=== PATIENT | male | born 1985 | race Caucasian/White ===

== ENCOUNTER 2021-02-02 17:02 | Emergency (ER) | payer OTHER, SELFPAY ==
--- NOTE | ~2021-02-02 | XR_ITS ---
XR ankle RT min 3V 02/02/2021 17:31 INDICATION: Right ankle pain PROCEDURE: 4 views right ankle COMPARISON: No prior studies for comparison. FINDINGS: Fracture, dislocation or subluxation is not identified. The soft tissues appear within norm al limits. No foreign bodies are identified. IMPRESSION: 1: NO ACUTE BONE OR JOINT ABNORMALITY IDENTIFIED. Reviewed, dictated and finalized at location A.
[2021-02-02 17:10] VITALS: BP 155/80; PULSE 74; RESP 14; TEMP 36.6; O2SAT 100
--- NOTE | 2021-02-02 18:03 | ED.LOWEXIN ---
HPI - Extremity Injury (Lower) General Chief Complaint: Extremity Injury, Lower Stated Complaint: Possible sprain right Ankle Time Seen by Provider: 02/02/21 17:40 Source: patient, RN notes reviewed and old records reviewed Mode of arrival: ambulatory Limitations: no limitations History of Present Illness HPI Narrative: 35 year old male who presents to [facility] care with complaints of pain medial and lateral aspect of his right ankle for the past 3 days. He states that he awoke with some pain in his ankle and didn't know of any injury. Patient states that he taped his right ankle and he went cycling like he normally does that day. He states that since then he has had increase in pain to his ankle. Patient states that he has been wearing a splint to his right ankle for support. MD complaint: ankle injury Injury: Right: ankle Type of Injury: unknown Severity: moderate Relieving factors: NSAID, cold therapy and immobilization Context: other (unknown initally but aggravated by cycling) Associated symptoms: other (pain) Related Data Home Medications Medication Instructions Recorded Confirmed loratadine [Claritin] 10 mg PO DAILY 02/02/21 02/02/21 Allergies Allergy/AdvReac Type Severity Reaction Status Date / Time No Known Allergies Allergy Verified 02/02/21 17:16 Review of Systems Review of Systems: Narrative: CONSTITUTIONAL: Denies fever, chills, or sweats. EYES: Denies visual changes, redness, or discharge. ENT: Denies rhinorrhea, congestion, sore throat, or otalgia. CARDIOVASCULAR: Denies chest pain, palpitations, or edema. RESPIRATORY: Denies cough or dyspnea. GASTROINTESTINAL: Denies abdominal pain, nausea, vomiting, or diarrhea. GENITOURINARY: Denies dysuria or hematuria. SKIN: Denies rash or itching. MUSCULOSKELETAL: Denies back pain,positive for right ankle joint pain especially to medial aspect, or myalgia. NEUROLOGIC: Denies headache, numbness, or weakness. PSYCHIATRIC: Denies anxiety or depression. All systems reviewed & are unremarkable except as noted in HPI and below PMFSH Past Medical History Medical History (Updated 02/02/21 @ 20:04 by Kindra Helm NP) Seasonal allergies Surgical History Surgical History (Updated 02/02/21 @ 20:02 by Kindra Helm NP) No history of previous surgery Family History Family History (Updated 02/02/21 @ 20:03 by Kindra Helm NP) Other Nvvnk-5-yxaaaicxnp inhibitor deficiency Asthma Carcinoma of colon Diabetes mellitus Rheumatoid arthritis Social History Social History (Updated 02/02/21 @ 20:02 by Kindra Helm NP) Smoking status: Never smoker Alcohol intake: current Alcohol use details: rare social Substance use: never Living arrangements: with family Gender identity (if verbalized by the patient): Male Exam Narrative: Exam Narrative: GENERAL: Well-appearing, well-nourished, and in no acute distress. HEAD: Normocephalic, atraumatic. EYES: PERRLA and EOMI. ENT: Nares clear, no rhinorrhea or epistaxis. Mucous membranes moist. NECK: Supple.no lymphadenopathy CHEST: Clear to auscultation. No respiratory distress. HEART: Regular rate and rhythm. No murmur heard. Normal peripheral pulses. ABDOMEN: Soft, nontender, nondistended, normal active bowel sounds. EXTREMITIES: Normal range of motion. No acute edema, full ROM of right ankle noted with some increased discomfort voiced with plantarflexion of right foot, strong pedal pulses to right foot with foot warm and pink. SKIN: Warm, dry, no rash. NEURO: No focal deficits. Alert and oriented x3. Course Vital Signs Vital signs: Vital Signs Temperature 36.6 C 02/02/21 17:10 Pulse Rate 74 02/02/21 17:10 Respiratory Rate 14 02/02/21 17:10 Blood Pressure 155/80 H 02/02/21 17:10 Pulse Oximetry 100 02/02/21 17:10 Temperature 36.6 C 02/02/21 17:10 Pulse Rate 74 02/02/21 17:10 Respiratory Rate 14 02/02/21 17:10 Blood Pressure 155/80 H 02/02/21 17
== END 2021-02-02 18:24 | disposition home or self-care (01) ==
PROVIDERS: Emergency Provider Registered Nurse
DX: S93.401A Sprain of unspecified ligament of right ankle, initial encounter (principal); S96.911A Strain of unspecified muscle and tendon at ankle and foot level, right foot, initial encounter; X58.XXXA Exposure to other specified factors, initial encounter
CPT/HCPCS: 73610; 99213; G0463

== ENCOUNTER 2021-08-17 16:36 | Emergency (ER) | payer OTHER, SELFPAY ==
--- NOTE | ~2021-08-17 | XR_ITS ---
EXAMINATION: XR elbow LT min 3V DATE: 08/17/2021 17:02 INDICATION: Left elbow pain. Fall. TECHNIQUE: 6 views of left elbow were obtained. COMPARISON: None. FINDINGS: Bone alignment is normal. There is a nondisplaced fracture of lateral and anterior aspect o f radial head. Joint spaces are normal. There is a large elbow joint effusion. IMPRESSION: 1. Nondisplaced fracture of radial head. 2. Large elbow joint effusion. Reviewed, dictated and finalized at location A. SHOE EXAMINER
[2021-08-17 16:42] VITALS: BP 112/91; PULSE 90; RESP 16; TEMP 36.6; O2SAT 99
[2021-08-17 16:50] VITALS: BP 112/91; PULSE 90; RESP 16; TEMP 36.6; O2SAT 99
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
== END 2021-08-17 17:39 | disposition home or self-care (01) ==
PROVIDERS: Emergency Provider Nurse Practitioner Family
DX: S52.125A Nondisplaced fracture of head of left radius, initial encounter for closed fracture (principal); V18.4XXA Pedal cycle driver injured in noncollision transport accident in traffic accident, initial encounter
CPT/HCPCS: 29105; 73080; 99214; A4565; G0463

== ENCOUNTER 2022-05-07 15:59 | Emergency (ER) | payer OTHER, SELFPAY ==
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
[2022-05-07 16:10] VITALS: BP 134/79; PULSE 75; RESP 14; TEMP 36.5; O2SAT 100
[2022-05-07 16:16] VITALS: BP 134/79; PULSE 75; RESP 14; TEMP 36.5; O2SAT 100
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
== END 2022-05-07 17:36 | disposition short-term general hospital (02) ==
PROVIDERS: Emergency Provider Registered Nurse
DX: S32.010A Wedge compression fracture of first lumbar vertebra, initial encounter for closed fracture (principal); V13.4XXA Pedal cycle driver injured in collision with car, pick-up truck or van in traffic accident, initial encounter
CPT/HCPCS: 72100; 99213; G0463

== ENCOUNTER 2022-05-07 18:05 | Emergency (ER) | payer OTHER, SELFPAY ==
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
[2022-05-07 18:23] VITALS: BP 135/79; PULSE 77; RESP 18; TEMP 36.4; O2SAT 99
[2022-05-07 19:29] VITALS: BP 145/83; PULSE 74; RESP 15; O2SAT 99
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
[2022-05-07 20:13] LABS: Basophils Percent Auto 0.3 % (0.2-1.2); Eosinophils Percent Auto 0.1 % (0-4.4); Hematocrit 45.3 % (42.0-52.0); Hemoglobin 15.6 g/dL (14.0-18.0); Immature Granulocyte Absolute 0.06 K/mm3 (0.00-0.031); Immature Granulocyte Percent A 0.4 % (0-0.5); Lymphocytes Absolute Auto 1.45 K/mm3 (0.9-3.2); Lymphocytes Percent Auto 9.7 % (18.3-44.2); Mean Corpuscular HGB Conc 34.4 g/dl (32-36); Mean Corpuscular Hemoglobin 30.6 pg (26-34); Mean Corpuscular Volume 88.8 fl (80-100); Mean Platelet Volume 10.2 fl (7.4-10.4); Monocytes Percent Auto 6.7 % (2.6-8.5); Neutrophils Absolute Auto 12.4 K/mm3 (1.3-6.7); Neutrophils Percent Auto 82.8 % (45.5-73.1); Platelet Count Result 251 k/mm3 (150-375); Red Cell Distribution Width 12.4 % (11.5-14.5)
[2022-05-07 20:24] LABS: Alanine Aminotransferase 40 U/L (6-50); Albumin Level 4.6 g/dL (3.5-5.1); Alkaline Phosphatase 49 U/L (38-126); Anion Gap 10 mmol/L (8-16); Aspartate Amino Transferase 36 U/L (17-59); Bilirubin,Total 1.1 mg/dL (0.2-1.3); Blood Urea Nitrogen 20 mg/dL (9-20); Calcium 9.1 mg/dL (8.4-10.2); Carbon Dioxide 24 mmol/L (22-30); Chloride 106 mmol/L (98-107); Estimated CRCL calculation 79 ml/min; Estimated Glomerular Filt Rate > 60; Glucose 93 mg/dL (65-110); Potassium 4.3 mmol/L (3.4-5.0); Sodium 140 mmol/L (137-145)
[2022-05-07] MEDS: KETOROLAC 15 MG/ML VIAL (*BKC) IV PUSH (20:24)
[2022-05-07 20:27] VITALS: BP 126/83; PULSE 80; RESP 13; O2SAT 100
[2022-05-07] MEDS: LIDOCAINE 5% PATCH 1 PATCH TRANSDERM (20:46)
[2022-05-07] MEDS: CYCLOBENZAPRINE HCL 10 MG TABLET PO (22:04)
== END 2022-05-07 22:08 | disposition home or self-care (01) ==
PROVIDERS: Physician Assistant; Emergency Provider Preventive Medicine Aerospace Medicine
DX: S32.010A Wedge compression fracture of first lumbar vertebra, initial encounter for closed fracture (principal); V19.40XA Pedal cycle driver injured in collision with unspecified motor vehicles in traffic accident, initial encounter; Y93.55 Activity, bike riding
CPT/HCPCS: 36415; 71260; 74177; 80053; 85025; 96374; 99284; A9270; J1885; Q9967

== ENCOUNTER 2022-06-10 11:37 | Outpatient (CLI) | payer OTHER, SELFPAY ==
--- NOTE | ~2022-06-10 | XR_ITS ---
XR lumbar spine 2-3V DATE: 06/10/2022 11:56 INDICATION: Low back pain TECHNIQUE: AP and lateral views COMPARISON: 05/07/2022 lumbar spine 05/07/2022 CT chest abdomen pelvis FINDINGS: Again noted is mild anterior wedge compression fracture of L1, present since 05/07/2022. No other fracture is evident. No bone destruction is detected. Included lower thoracic and lumbar ped icles are intact. Lumbar and lumbosacral interspaces are well preserved. The sacroiliac joints are intact. IMPRESSION: Mild anterior wedge L1 compression fracture Reviewed, dictated and finalized at location A. LSIOR PICKER
== END 2022-06-10 11:38 | disposition home or self-care (01) ==
LOC: ANHIMG 11:39
PROVIDERS: Visit Provider Neurological Surgery
DX: M54.50 Low back pain, unspecified (principal)
CPT/HCPCS: 72100